=== PATIENT | female | born 1980 | race Caucasian/White ===

== ENCOUNTER 2021-12-13 14:40 | Emergency (ER) | payer OTHER ==
[~2021-12-13] VITALS: Ht 172.7 cm; Wt 57.2 kg
--- NOTE | 2021-12-13 15:20 | NUR ---
Patient ambulatory, alert and orientedx4, complaints of lower abdominal stabbing pain 02/08 started today, minimal vaginal bleeding with small clots as verbalized by pt for 10 days. Vitals stable. Denies nausea/vomiting.
--- NOTE | 2021-12-13 15:30 | NUR ---
MD at bedside, medical screening in process.
[2021-12-13 16:02] LABS: HEMATOCRIT 32.5 % (31.2-41.9); MEAN CORPUSCULAR HEMOGLOBIN 22.4 uug (24.7-32.8); MEAN CORPUSCULAR VOLUME 71.3 fL (75.5-95.3); PLATELET COUNT (AUTO) 351 K/uL (179-408)
[2021-12-13 16:08] LABS: CARBON DIOXIDE 26 mmol/L (21-32); CHLORIDE 104 mmol/L (98-107); CREATININE 0.8 mg/dL (0.6-1.3); GLUCOSE 83 mg/dL (74-106); POTASSIUM 3.5 mmol/L (3.5-5.1); UREA NITROGEN, BLOOD 14 mg/dL (7-18)
--- NOTE | 2021-12-13 16:57 | NUR ---
DR PERES MADE PATIENT AWARE OF TEST RESULTS. Patient discharged to home in stable condition. Written and verbal after care instructions given. Patient verbalizes understanding of instructions. Stressed follow up or return to ER for worsening s/s.
[2021-12-13 16:58] VITALS: BP 135/88
== END 2021-12-13 17:00 | disposition home or self-care (01) ==
LOC: ER 14:40
DX: N93.8 Other specified abnormal uterine and vaginal bleeding (principal)
CPT/HCPCS: 36415; 85025; 85730; A4663

== ENCOUNTER 2022-04-05 13:38 | Emergency (ER) | payer OTHER ==
[~2022-04-05] VITALS: Ht 172.7 cm; Wt 58.1 kg
[2022-04-05 15:59] LABS: HEMATOCRIT 32.1 % (31.2-41.9); MEAN CORPUSCULAR HEMOGLOBIN 24.5 uug (24.7-32.8); MEAN CORPUSCULAR VOLUME 77.4 fL (75.5-95.3); PLATELET COUNT (AUTO) 410 K/uL (179-408)
[2022-04-05 16:13] LABS: CARBON DIOXIDE 24 mmol/L (21-32); CHLORIDE 102 mmol/L (98-107); CREATININE 0.7 mg/dL (0.6-1.3); GLUCOSE 86 mg/dL (74-106); POTASSIUM 3.8 mmol/L (3.5-5.1); UREA NITROGEN, BLOOD 10 mg/dL (7-18)
--- NOTE | 2022-04-05 18:41 | NUR ---
IV removed. Catheter intact and site benign. Pressure and 4x4 gauze applied to site. No bleeding noted.
--- NOTE | 2022-04-05 18:47 | NUR ---
Patient discharged to home in stable condition. Written and verbal after care instructions given. Patient verbalizes understanding of instructions. Stressed follow up or return to ER for worsening s/s.
[2022-04-05 18:48] VITALS: BP 128/78
== END 2022-04-05 18:48 | disposition home or self-care (01) ==
LOC: ER 13:38
DX: N94.6 Dysmenorrhea, unspecified (principal); R06.00 Dyspnea, unspecified; R53.83 Other fatigue; N93.8 Other specified abnormal uterine and vaginal bleeding
CPT/HCPCS: 36415; 71045; 84484; 85025; 93005; A4663